=== PATIENT | male | born 1995 | race Caucasian/White ===

== ENCOUNTER 2018-03-08 22:13 | Emergency (ER) | payer BC, SELFPAY ==
[2018-03-08 22:14] VITALS: BP 127/92; PULSE 79; RESP 18; TEMP 36.6; O2SAT 97; BMI 34.0
[2018-03-08 23:01] LABS: Bacteria 0 SEEN /hpf (None Seen); Mucous, Urine 0 SEEN /hpf (<or=2+); Squamous Epithelial Cells - UA 0 SEEN /hpf (0-5)
[2018-03-08 23:02] LABS: Color, Urine Amber (Yellow); Glucose, Dipstick Normal (Normal); Ketone-Dipstick 5 mg/dl (Negative); Leukocyte Esterase-Dipstick 25 /ul (Negative); Nitrite-Dipstick Negative (Negative); Occult Blood-Urine 250 /ul (Negative); Protein-Dipstick 30 mg/dl (Negative); Specific Gravity, Urine 1.025 (1.002-1.030); Urine Clarity Cloudy (Clear); Urine Urobilinogen 4 mg/dl (Normal)
[2018-03-08 23:14] LABS: Urine Bilirubin Dipstick 3 mg/dL (Negative)
[2018-03-08 23:15] LABS: Hyaline Cast 0-5 SEEN /lpf (0-5); Red Blood Cells-Urine > 100 SEEN /hpf (0-5); White Blood Cells 0-5 SEEN /hpf (0-5)
--- NOTE | 2018-03-08 23:28 | ED.DCSUM_ITS ---
- ER Visit Summary Date of Service: 03/08/18 Chief Complaint: Back pain, nausea, and vomiting History of Present Illness: The patient is a 22 M who presents with nausea, vomiting, and low back pain that began yesterday. Patient states she has been unable to keep anything down today. Patient states his emesis is undigested food. Patient admits to some watery diarrhea. Patient denies any melena or hematochezia. Patient denies any hematemesis or coffee-ground emesis. Patient states his pain is mainly over his lower lumbar area. Patient does admit to some mild lower abdominal pain. Patient does admit to some mild dysuria and mild urinary frequency. Patient states his urine does appear darker than usual. Physical Examination: Vital signs are stable. Patient is afebrile. Patient is in no acute distress. Oral mucosa is pink and moist. Neck is supple. Trachea is midline. There is no JVD or lymphadenopathy noted. Heart was regular rate and rhythm. Lungs are clear and equal bilaterally. There is good respiratory effort noted. Abdomen is soft. Bowel sounds are normal. There is some mild lower abdominal tenderness. There is no rebound or guarding noted. Musculoskeletal exam revealed tenderness over the lower lumbar paraspinal muscles. There is no midline tenderness. There is no bony crepitance or step- off. There is good range of motion. The remaining physical exam is within normal limits. Test Results: CBC and comprehensive metabolic profile were obtained. Total bilirubin was mildly elevated at 2.7. AST and ALT were slightly elevated at 54 and 101 respectively. Urinalysis showed occult blood of 250 with greater than [address] scan of the abdomen and pelvis was obtained. There is no acute intra-abdominal process noted. Emergency Department Course and Treatment: Patient was given a dose of Zofran here. Patient felt better on reevaluation. Patient was sleeping on reevaluation. Patient was instructed to drink plenty of fluids. Patient was instructed to follow-up with his primary care physician in 5-7 days. Patient understood and was agreeable with the plan. All questions were answered. Disposition: Discharge home Impression: Abdominal pain, hematuria This note was generated with [employer] dictation software. It may contain incorrect words, spelling, and punctuation that were not noted in review of the chart prior to signing ED Disposition - Plan for ED Patient: Disposition: Home or Assisted Living Chief Complaint: Flank Pain Diagnosis: Abdominal pain in male, Hematuria Instructions: ED Flank Pain Uncertain Cause Referrals: NOT,DEFINED [NON-STAFF] -
[2018-03-08] MEDS: 0.9% Normal Saline 1,000 ML 1000 ML IV (23:31)
[2018-03-08] MEDS: Ondansetron 4 MG/2 ML Vial IV (23:31)
[2018-03-08 23:39] LABS: Absolute Lymphocyte Count 2.28 X10^3/ul (0.83-4.51); Absolute Neutrophil Count 2.1 X10^3/uL (2.0-7.7); Basophil# 0.02 X10^3/uL; Basophil% 0.4 % (0-1); Eosinophil# 0.17 X10^3/uL; Eosinophils% 3.3 % (0-5); Hematocrit 44.6 % (40-54); Hemoglobin 15.1 g/dl (13.0-16.5); Lymphocyte # 2.28 X10^3/ul (4.0); Lymphocyte % 44.4 % (19-41); Mean Corp Hgb Conc 33.9 g/gl (32-36); Mean Corpuscular Hgb 31.4 pg (27.0-32.0); Mean Corpuscular Volume 92.7 fL (80-94); Mean Platelet Vol. 10.2 fl (6.2-12.0); Monocyte# 0.51 X10^3/uL; Monocyte% 9.9 % (0-10); Neutrophil # 2.14 X10^3/uL (2.7-7.7); Neutrophil % 41.6 % (47-70); POSITIVE COUNT NO; POSITIVE DIFFERENTIAL NO; POSITIVE MORPHOLOGY NO; Platelet Count 232 K/mm3 (150-450); RBC Distribution Width CV 12.4 % (11.6-14.6); RBC Distribution Width SD 41.9 fl (35.1-43.9); Red Blood Count 4.81 M/mm3 (4.6-6.2); White Blood Count 5.1 K/mm3 (4.4-11.0)
[2018-03-08 23:48] LABS: ALB/GLOB Ratio 1.3 RATIO (0.9-2.4); AST(SGOT) 54 U/L (15-37); Alanine Aminotransfer ALT/SGPT 101 U/L (16-61); Albumin, Serum 4.4 g/dL (3.2-5.0); Alkaline Phosphatase 86 U/L (45-117); Anion Gap 7 (5-15); BUN 13 mg/dL (7-18); BUN/Creat Ratio 10.3 RATIO (10-20); Calcium,Total 8.6 mg/dL (8.5-10.1); Chloride 105 mmol/L (98-107); Creatinine, Serum 1.26 mg/dL (0.70-1.30); EST Glomerular Filtration Rate 75 mL/min (>60); Est Glom Filt Rate - Afr Amer 91 mL/min (>60); Estimated Creatinine Clearance 103.05 ml/min; Globulin 3.5 g/dL (2.2-4.2); Glucose 88 mg/dL (74-106); Lipase 75 U/L (73-393); Potassium 3.5 mmol/L (3.5-5.1); Protein, Total 7.9 g/dL (6.4-8.2); Sodium Level 140 mmol/L (136-145)
--- NOTE | 2018-03-09 01:06 | CT_ITS ---
STUDY: CT ABDOMEN AND PELVIS WITHOUT CONTRAST REASON FOR EXAM: Male, 22 years old. Flank pain RADIATION DOSAGE (If Supplied By Facility): CTDIvol = ( 18.22 ) mGy, DLP = ( 1042.60 ) mGycm TECHNIQUE: Transaxial images were obtained from the dome of the diaphragm to the symphysis pubis without oral contrast, and without intravenous contrast. Sagittal and coronal images were reconstructed. Individualized dose optimization techniques were used for this CT. COMPARISON: None. FINDINGS: The lung bases are clear. The liver is normal. No dilated intrahepatic biliary radicles. Previous cholecystectomy. The spleen is normal. The pancreas is normal. Both adrenals are normal. The kidneys are normal with no masses, calculi or hydronephrosis The stomach is normal. There is no bowel distention, acute appendicitis or diverticulitis. No constricting lesions are seen in large bowel. The abdominal wall is intact with no hernias. There is no ascites or any free intraperitoneal air. No indication of epiploic appendagitis The vascular structures in the retroperitoneum are normal. There is no retrocrural, retroperitoneal or mesenteric adenopathy. The bones and joints are normal. The urinary bladder is normal.--The prostate is normal. There is no inguinal or pelvic adenopathy. There is no inguinal hernia. .. CT/Abdomen/Pelvis without Cont IMPRESSION: No acute findings in the abdomen or pelvis. Specifically there is no acute appendicitis or diverticulitis. No hydronephrosis and no abnormal calcifications in the urinary system Electronically Signed: Hans Jack, at 2:06 EDT Tel , Service support ,
[2018-03-09 03:03] VITALS: BP 122/60; PULSE 79; RESP 18; O2SAT 98
== END 2018-03-09 03:04 | disposition home or self-care (01) ==
PROVIDERS: Emergency Provider Emergency Medicine
DX: R10.30 Lower abdominal pain, unspecified (principal); R31.9 Hematuria, unspecified; R11.2 Nausea with vomiting, unspecified; R19.7 Diarrhea, unspecified; R74.8 Abnormal levels of other serum enzymes; R30.0 Dysuria; R35.0 Frequency of micturition; M54.5 Low back pain; Z72.0 Tobacco use; Z79.899 Other long term (current) drug therapy; Z90.49 Acquired absence of other specified parts of digestive tract
CPT/HCPCS: 74176; 80053; 81001; 83690; 85025; 96361; 96374; 99285; J7030; A4216; J2405

== ENCOUNTER 2018-11-20 15:35 | Emergency (ER) | payer BC, SELFPAY ==
[2018-11-20 15:35] VITALS: BP 158/87; PULSE 110; RESP 18; TEMP 36.1; O2SAT 99; BMI 33.0
--- NOTE | 2018-11-20 15:43 | ED.RN ---
PLEASE TAKE ME OUT OF THE SYSTEM I AM GOING TO [place].
== END 2018-11-20 15:59 | disposition left against medical advice (07) ==
LOC: ED 15:58
PROVIDERS: Emergency Provider Emergency Medicine
DX: R52 Pain, unspecified (principal); Z53.21 Procedure and treatment not carried out due to patient leaving prior to being seen by health care provider